=== PATIENT | female | born 1985 | race American Indian/Alaskan Native ===

== ENCOUNTER 2016-08-30 10:15 | Day surgery (SDC) | payer MEDICAID ==
[~2016-08-30 10:15] MED LIST: DIPRIVAN 10 MG/ML IV ONE; NACL BACTERIOSTATIC INFILTRATI ONE; ROBINUL ONE; SUBLIMAZE ONE; VANCOMYCIN/NS 1 GM/250 ML 1 GM/250 ML BAG IV NR; XYLOCAINE MPF 2% ONE; ZEMURON IV ONE
[2016-08-30] MEDS ORDERED: NACL 0.9% 1000 ML 1,000 ML IV SCH (11:14)
[2016-08-30] MEDS ORDERED: VERSED IV NR (11:14)
[2016-08-30] MEDS ORDERED: PEPCID PO NR (11:14)
--- NOTE | 2016-08-30 11:24 | Anesthesia Consultation ---
Anesthesia Consult and Med Hx Date of service: 08/30/16 - Airway Anesthetic Teeth Evaluation: Good ROM Head & Neck: Adequate Mental/Hyoid Distance: Adequate Mallampati Class: Class II Intubation Access Assessment: Probably Good - Pulmonary Exam CTA: Yes - Cardiac Exam Cardiac Exam: RRR - Pre-Operative Health Status ASA Pre-Surgery Classification: ASA2 Proposed Anesthetic Plan: General - Pulmonary Hx Smoking: Yes (current) Hx Asthma: Yes (last used inhaler approx 1 week ago) Hx Sleep Apnea: No - Cardiovascular System Hx Hypertension: No - Central Nervous System Hx Neuromuscular Disorder: No Hx Psychiatric Problems: Yes (anxiety) - Gastrointestinal Hx Gastroesophageal Reflux Disease: No - Endocrine Hx Renal Disease: No Hx Insulin Dependent Diabetes: No - Hematic Hx Anemia: Yes Hx Sickle Cell Disease: No - Other Systems Hx Alcohol Use: Yes (occas) Hx Substance Use: No Hx Cancer: No Hx Obesity: No
--- NOTE | 2016-08-30 11:24 | Anesthesia Day of Surgery ---
Anesthesia Day of Surgery - Day of Surgery Patient Examined: Yes Patient H&P Reviewed: Yes Patient is NPO: Yes
[2016-08-30] MEDS ORDERED: PROVENTIL IH ONE ×3 (11:30→15:40)
[2016-08-30] MEDS ORDERED: ZOFRAN IV PRN (11:30)
[2016-08-30] MEDS ORDERED: DILAUDID IV PRN (11:30)
[2016-08-30] MEDS ORDERED: MARCAINE 0.5% 0 ML INFILTRATI ONE (11:33)
[2016-08-30] MEDS ORDERED: MARCAINE-EPI/PF 0.5%-1:200,000 INFILTRATI ONE (11:34)
[2016-08-30 11:50] LABS: Basophils % (Auto) 0.3 % (0.0-1.8); Eosinophils % (Auto) 0.6 % (0.0-4.3); Hematocrit 35.9 % (30.3-42.9); Hemoglobin 12.1 gm/dl (10.1-14.3); Mean Corpuscular HGB Conc 34 % (30-34); Mean Corpuscular Hemoglobin 32 pg (28-32); Mean Corpuscular Volume 95 fl (79-97); Platelet Count 198 K/mm3 (140-440); Red Blood Count 3.79 M/mm3 (3.65-5.03); Red Cell Distribution Width 13.5 % (13.2-15.2); White Blood Count 11.7 K/mm3 (4.5-11.0)
[2016-08-30 12:01] LABS: Anion Gap 19 mmol/L; BUN/Creatinine Ratio 26.66; Blood Urea Nitrogen 16 mg/dL (7-17); Calcium 8.8 mg/dL (8.4-10.2); Carbon Dioxide 21 mmol/L (22-30); Chloride 102.2 mmol/L (98-107); Glucose 85 mg/dL (65-100); Potassium 4.4 mmol/L (3.6-5.0); Sodium 138 mmol/L (137-145)
[2016-08-30] MEDS ORDERED: DILAUDID ONE (12:44)
[2016-08-30] MEDS ORDERED: ZOFRAN ONE (12:44)
[2016-08-30] MEDS ORDERED: DECADRON ONE (12:44)
[2016-08-30] MEDS ORDERED: NACL 0.9% IR ONE (12:50)
[2016-08-30] MEDS ORDERED: MARCAINE 0.5% INFILTRATI ONE (12:50)
[2016-08-30] MEDS ORDERED: NEOSTIGMINE ONE (13:15)
[2016-08-30] MEDS ORDERED: ROBINUL ONE (13:15)
--- NOTE | 2016-08-30 13:22 | Discharge Summary ---
Short Stay Discharge Plan Activity: other (observe x 4 hrs then june d/c if stable. ice chips today. cl liq in am. advance to solid as gulshan ) Weight Bearing Status: Non-Weight Bearing (no lifting over 5 lbs x 1wk. keep dressings dry x 5 days) Diet: other Wound: keep clean and dry Follow up with: APRYL BIRD MD [Staff Physician] - 7 Days
--- NOTE | 2016-08-30 13:51 | Post Anesthesia Evaluation ---
- Post Anesthesia Evaluation Patient Participated: Yes Airway Patent: Yes Stable Respiratory Function: Yes Temp > 96.8F: Yes Pain Manageable: Yes Adequeate Hydration: Yes Anesthesia Complications: No Block Receding Appropriately: Not Applicable
[2016-08-30] MEDS ORDERED: NORCO 5/325 PO PRN (13:55)
[2016-08-30] MEDS ORDERED: NORCO 5/325 ONE (14:07)
[2016-08-30] MEDS ORDERED: VERSED IV ONE (14:36)
[2016-08-30] MEDS ORDERED: NACL 0.9% NEBU ONE (15:15)
[2016-08-30 16:23] VITALS: BP 98/59
--- NOTE | 2016-08-30 19:13 | Operative Report ---
PREOPERATIVE DIAGNOSIS: Abdominal pain, rule out adhesions. POSTOPERATIVE DIAGNOSIS: Extensive intra-abdominal omental as well as intestinal adhesions. PROCEDURE: 1. Diagnostic laparoscopy. 2. Lysis of extensive adhesions. 3. Re-tacking of corner of mesh from previous hernia repair. SURGEON: Del Tan MD. MAJOR CASE DETECTIVE: Dr. Hadley. ANESTHESIA: General. ESTIMATED BLOOD LOSS: Minimal. COMPLICATIONS: None. PROCEDURE IN DETAIL: The patient was taken to the operating room, prepped and draped in usual sterile fashion. Veress needle was inserted and CO2 insufflation begun. A 5 mm trocar was inserted and camera inserted. All other trocars were inserted under direct visualization. Inspection of the area revealed extensive omental and intestinal adhesions in the area of previous hernia repair. Harmonic scalpel was used to slowly dissect and lyse all adhesions until the entire bowel and omentum were freed from the previous repair site. The intestine was carefully inspected and no iatrogenic injuries noted. The mesh itself was noted to be slightly loosened after the dissection and lysis of adhesions in one of its corners. Three absorbable tacks were used to reinforce this area and place the mesh back on the fascia. The rest of the abdomen was essentially normal. The two 5 mm lateral trocars were removed under direct visualization. No bleeding or oozing noted. The final 5 mm port was used to expel the CO2 and the trocar removed. The skin at all port sites was closed with subcuticular 4-0 Vicryl. A 0.5% Marcaine was infiltrated over the port site for postoperative pain relief. The patient tolerated the procedure well and left the OR in stable condition. JOB# [id number] MARKOS/DAIJA
== END 2016-08-30 10:16 | disposition home or self-care (01) ==
LOC: OR 10:15
PROVIDERS: ATTEND Surgery
DX: N73.6 Female pelvic peritoneal adhesions (postinfective) (principal); J45.909 Unspecified asthma, uncomplicated; F41.9 Anxiety disorder, unspecified; F17.200 Nicotine dependence, unspecified, uncomplicated; D64.9 Anemia, unspecified; Z72.89 Other problems related to lifestyle; Z88.0 Allergy status to penicillin
CPT/HCPCS: 36415; 49329; 80048; 81025; 85025; 86850; 86900; 86901; J1100; J1170; J2250; J2405; J2704; J2710; J3010; J3370; J7030

== ENCOUNTER 2017-04-29 12:08 | Day surgery (SDC) | payer MEDICAID ==
[~2017-04-29 12:08] MED LIST changes: -DIPRIVAN 10 MG/ML IV ONE; +MARCAINE 0.5% INFILTRATI ONE; +NACL 0.9% IR ONE; -NACL BACTERIOSTATIC INFILTRATI ONE; -ROBINUL ONE; -SUBLIMAZE ONE; -VANCOMYCIN/NS 1 GM/250 ML 1 GM/250 ML BAG IV NR; +VANCOMYCIN/NS 1 GM/250 ML 1 GM/250 ML BAG IV SCH; -XYLOCAINE MPF 2% ONE; -ZEMURON IV ONE
[2017-04-29 13:07] LABS: Basophils % (Auto) 0.6 % (0.0-1.8); Eosinophils % (Auto) 0.5 % (0.0-4.3); Hematocrit 37.1 % (30.3-42.9); Hemoglobin 12.3 gm/dl (10.1-14.3); Lymphocytes # (Auto) 2.3 K/mm3 (1.2-5.4); Lymphocytes % (Auto) 27.4 % (13.4-35.0); Mean Corpuscular HGB Conc 33 % (30-34); Mean Corpuscular Hemoglobin 32 pg (28-32); Mean Corpuscular Volume 97 fl (79-97); Monocytes # (Auto) 0.6 K/mm3 (0.0-0.8); Monocytes % (Auto) 7.4 % (0.0-7.3); Platelet Count 237 K/mm3 (140-440); Red Cell Distribution Width 12.2 % (13.2-15.2)
[2017-04-29 13:34] LABS: BUN/Creatinine Ratio 17; Blood Urea Nitrogen 12 mg/dL (7-17); Calcium 8.8 mg/dL (8.4-10.2); Hemolysis Index 10
[2017-04-29] MEDS ORDERED: DILAUDID IV PRN ×2 (13:35→15:59)
[2017-04-29] MEDS ORDERED: PERCOCET 5/325 PO PRN (13:35)
[2017-04-29] MEDS ORDERED: PHENERGAN PO PRN (13:35)
--- NOTE | 2017-04-29 13:35 | Anesthesia Consultation ---
Anesthesia Consult and Med Hx Date of service: 04/29/17 - Airway Anesthetic Teeth Evaluation: Good ROM Head & Neck: Adequate Mental/Hyoid Distance: Adequate Mallampati Class: Class I Intubation Access Assessment: Good - Pulmonary Exam CTA: Yes - Cardiac Exam Cardiac Exam: RRR - Pre-Operative Health Status ASA Pre-Surgery Classification: ASA2 Proposed Anesthetic Plan: General - Pulmonary Hx Smoking: Yes (current) Hx Asthma: Yes Hx Sleep Apnea: No - Cardiovascular System Hx Hypertension: No - Central Nervous System Hx Neuromuscular Disorder: No Hx Psychiatric Problems: Yes - Gastrointestinal Hx Gastroesophageal Reflux Disease: No - Endocrine Hx Renal Disease: No Hx Insulin Dependent Diabetes: No - Hematic Hx Anemia: Yes Hx Sickle Cell Disease: No - Other Systems Hx Alcohol Use: Yes (occas) Hx Substance Use: No Hx Cancer: No Hx Obesity: No - Additional Comments Anesthesia Medical History Comments: Patient indicates a history of hypokalemia.
--- NOTE | 2017-04-29 13:35 | Anesthesia Day of Surgery ---
Anesthesia Day of Surgery - Day of Surgery Patient Examined: Yes Patient H&P Reviewed: Yes Patient is NPO: Yes
[2017-04-29] MEDS ORDERED: ZOFRAN IV PRN ×2 (14:00→15:59)
[2017-04-29] MEDS ORDERED: PEPCID IV NR (14:00)
[2017-04-29] MEDS ORDERED: LACTATED RINGERS 1,000 ML IV SCH (14:00)
[2017-04-29] MEDS ORDERED: VERSED IV NR (14:00)
[2017-04-29] MEDS ORDERED: VANCOMYCIN/NS 1 GM/250 ML 1 GM/250 ML BAG IV SCH (14:00)
[2017-04-29] MEDS ORDERED: MARCAINE 0.5% 30 ML INFILTRATI ONE (14:10)
[2017-04-29] MEDS ORDERED: ZEMURON IV ONE (14:14)
[2017-04-29] MEDS ORDERED: QUELICIN ONE (14:14)
[2017-04-29] MEDS ORDERED: DECADRON ONE (14:14)
[2017-04-29] MEDS ORDERED: ZOFRAN ONE (14:14)
[2017-04-29] MEDS ORDERED: DIPRIVAN 10 MG/ML IV ONE (14:15)
[2017-04-29] MEDS ORDERED: SUBLIMAZE ONE (14:15)
[2017-04-29] MEDS ORDERED: VERSED ONE (14:18)
[2017-04-29] MEDS ORDERED: XYLOCAINE 2% INFILTRATI ONE (14:22)
[2017-04-29] MEDS ORDERED: XYLOCAINE MPF 2% ONE ×2 (14:23→14:30)
[2017-04-29] MEDS ORDERED: ROBINUL ONE (15:08)
[2017-04-29] MEDS ORDERED: NEOSTIGMINE ONE (15:08)
--- NOTE | 2017-04-29 15:14 | Discharge Summary ---
Short Stay Discharge Plan Activity: other (observe x 4 hrs then may d/c if stable. ice chips today. cl liq in am then advance to solid diet as gulshan. keep dressings dry x 5 days. no lifting over 5 lbs x 2 wks) Weight Bearing Status: Partial Weight Bearing Diet: other Wound: keep clean and dry Additional Instructions: aleve I po q 6-8 hrs for breakthrough pain. surfak I po q am x 3 days Follow up with: TERRY MENDEZ MD [Primary Care Provider] - 7 Days
[2017-04-29] MEDS ORDERED: DILAUDID ONE (15:57)
--- NOTE | 2017-04-29 16:00 | Post Anesthesia Evaluation ---
- Post Anesthesia Evaluation Patient Participated: Yes Airway Patent: Yes Stable Respiratory Function: Yes Nausea/Vomiting: No Temp > 96.8F: Yes Pain Manageable: Yes Adequeate Hydration: Yes Anesthesia Complications: No
--- NOTE | 2017-04-29 17:17 | Operative Report ---
PREOPERATIVE DIAGNOSES: Rule out adhesions versus possible recurrent ventral hernia. POSTOPERATIVE DIAGNOSES: Extensive intra-abdominal adhesions around the old hernia repair site. No recurrent hernia noted. Also, extensive adhesions noted in the right subphrenic space between the diaphragm and the liver consistent with [id number]. These adhesions were also lysed. SURGEON: Del Tan MD ADMINISTRATIVE MEDICAL DIRECTOR: ____ ANESTHESIA: General. ESTIMATED BLOOD LOSS: Minimal. DRAINS: No drains. COMPLICATIONS: No complications. PROCEDURE IN DETAIL: The patient was taken to the operating room, prepped and draped in usual sterile fashion. Veress needle was inserted and CO2 insufflation begun. A 5 mm trocar was inserted and camera inserted. Inspection of the area revealed some thickened omental adhesions in the colon being pulled up to the area of the adhesions. A slow dissection was carried out with EndoShears as well as Harmonic scalpel until all adhesions were completely freed and the colon and the rest of the bowel were returned to its anatomical position in the abdominal cavity. The area of the bowel was carefully inspected and no iatrogenic injuries noted. No bleeding or oozing seen. The mesh was then inspected and a previous hernia site repair palpated and visualized. No evidence of any recurrent hernias noted. Further inspection revealed extensive right subphrenic adhesions between the diaphragm and liver. These were also dissected free. Pre and post-adhesiolysis pictures were taken of both the areas of dissection. Rest of the abdomen was essentially normal. The two lateral 5 mm ports were removed under direct visualization. No bleeding or oozing noted. The final 5 mm port was used to expel the CO2 and the trocar removed. The skin at all port sites was closed with subcuticular 4-0 Vicryl. A 0.5% Marcaine was infiltrated over the port site for postoperative pain relief. The patient tolerated the procedure well and left the OR in stable condition. JOB# [id number] MARKOS/DAIJA
[2017-04-29 19:26] VITALS: BP 107/65
== END 2017-04-29 12:09 | disposition home or self-care (01) ==
LOC: OR 12:08
PROVIDERS: ATTEND Surgery
DX: K66.0 Peritoneal adhesions (postprocedural) (postinfection) (principal); K21.9 Gastro-esophageal reflux disease without esophagitis; J45.909 Unspecified asthma, uncomplicated; F17.200 Nicotine dependence, unspecified, uncomplicated; Z88.0 Allergy status to penicillin; Z98.890 Other specified postprocedural states
CPT/HCPCS: 36415; 44180; 80048; 81025; 85025; A4217; J0330; J1100; J1170; J2250; J2405; J2704; J2710; J3010; J3370; J7120

== ENCOUNTER 2017-05-05 19:46 | Emergency (ER) | payer MEDICAID ==
[2017-05-05 20:42] LABS: Basophils % (Auto) 0.3 % (0.0-1.8); Eosinophils # (Auto) 0.1 K/mm3 (0.0-0.4); Eosinophils % (Auto) 0.6 % (0.0-4.3); Hematocrit 35.8 % (30.3-42.9); Hemoglobin 12.1 gm/dl (10.1-14.3); Lymphocytes # (Auto) 2.2 K/mm3 (1.2-5.4); Lymphocytes % (Auto) 23.9 % (13.4-35.0); Mean Corpuscular HGB Conc 34 % (30-34); Mean Corpuscular Hemoglobin 33 pg (28-32); Mean Corpuscular Volume 96 fl (79-97); Monocytes # (Auto) 0.5 K/mm3 (0.0-0.8); Monocytes % (Auto) 5.1 % (0.0-7.3); Platelet Count 221 K/mm3 (140-440); Red Blood Count 3.72 M/mm3 (3.65-5.03); Red Cell Distribution Width 12.8 % (13.2-15.2)
[2017-05-05 21:13] LABS: Alanine Aminotransferase 20 units/L (7-56); Albumin 3.9 g/dL (3.9-5); BUN/Creatinine Ratio 17; Blood Urea Nitrogen 10 mg/dL (7-17); Calcium 8.9 mg/dL (8.4-10.2); Hemolysis Index 2; Lipase 24 units/L (13-60)
[2017-05-05] MEDS ORDERED: MORPHINE IV ONE ×2 (23:00→23:08)
[2017-05-05] MEDS ORDERED: ZOFRAN IV ONE (23:08)
[2017-05-05] MEDS ORDERED: NACL 0.9% 1000 ML 1,000 ML IV ONE (23:09)
--- NOTE | 2017-05-05 23:13 | Emergency Department Report ---
ED Abdominal Pain HPI - General Chief Complaint: Abdominal Pain Stated Complaint: STOMACH PAIN Time Seen by Provider: 05/05/17 23:03 Source: patient Mode of arrival: Wheelchair Limitations: No Limitations - History of Present Illness Initial Comments: Patient is 31 years old female history of hernia repair [address] Oliva. Patient presented to the ER complaining of diffuse abdominal pain for the last 2 days. Patient describes her pain as stabbing and sharp 10 out of 10. Patient denied any diarrhea she stated that she is pain passing gas normally was no problem. Patient denied any nausea or vomiting. No fever. MD Complaint: abdominal pain -: days(s) Location: diffuse Radiation: none Migration to: no migration Severity: moderate Severity scale (0 -10): 5 Quality: stabbing Consistency: constant Associated Symptoms: denies other symptoms - Related Data Home Medications Medication Instructions Recorded Confirmed Last Taken Ferrous Sulfate [Feosol] 325 mg PO QDAY 08/27/16 04/29/17 04/27/17 09:00 Linaclotide [Linzess] 145 mcg PO PRN PRN 08/27/16 04/29/17 04/27/17 09:00 Valacyclovir HCl [valACYclovir] 500 mg PO DAILY 08/27/16 04/29/17 04/27/17 09:00 Gabapentin [Neurontin] 300 mg PO BID 04/24/17 04/29/17 04/27/17 09:00 QUEtiapine [SEROquel] 25 mg PO QHS 04/24/17 04/29/17 04/27/17 21:00 lamoTRIgine [LaMICtal] 100 mg PO QDAY 04/24/17 04/29/17 04/27/17 09:00 Previous Rx's Medication Instructions Recorded Last Taken Type ALBUTEROL Inhaler [ProAir HFA 1 - 2 puff IH QID PRN #1 inha 07/21/14 04/27/17 09 :00 Rx Inhaler] oxyCODONE /ACETAMINOPHEN [Percocet 1 - 2 tab PO Q4HR #20 tab 04/29/17 Unknown Rx 5/325] Ondansetron [Zofran Odt] 4 mg PO Q8HR PRN #14 tab.rapdis 05/06/17 Unknown Rx traMADol [Ultram 50 MG tab] 50 mg PO Q4HR PRN #14 tablet 05/06/17 Unknown Rx Allergies Allergy/AdvReac Type Severity Reaction Status Date / Time Penicillins Allergy Lose of Verified 04/24/17 10:19 control ED Review of Systems ROS: Stated complaint: STOMACH PAIN Other details as noted in HPI Comment: All other systems reviewed and negative Constitutional: denies: chills, fever ENT: denies: throat pain Respiratory: denies: cough, orthopnea, shortness of breath, SOB with exertion Cardiovascular: denies: chest pain, palpitations, dyspnea on exertion Gastrointestinal: abdominal pain. denies: nausea, vomiting, diarrhea, constipation, hematemesis, melena, hematochezia Musculoskeletal: denies: back pain Neurological: denies: headache, weakness, numbness, paresthesias ED Past Medical Hx - Past Medical History Hx Hypertension: No Hx GERD: Yes Hx Renal Disease: No Hx Sickle Cell Disease: No Hx Headaches / Migraines: Yes Hx Asthma: Yes Hx HIV: No - Surgical History Hx Breast Surgery: (LEFT BREAST BIOPSY) Additional Surgical History: hernia repair,scar tissue removal x2 - Social History Smoking Status: Current Some Day Smoker Substance Use Type: None - Medications Home Medications: Home Medications Medication Instructions Recorded Confirmed Last Taken Type ALBUTEROL Inhaler [ProAir HFA 1 - 2 puff IH QID PRN #1 inha 07/21/14 04/29/17 09:00 Rx Inhaler] Ferrous Sulfate [Feosol] 325 mg PO QDAY 08/27/16 04/29/17 04/27/17 09:00 History Linaclotide [Linzess] 145 mcg PO PRN PRN 08/27/16 04/29/17 04/27/17 09:00 History Valacyclovir HCl [valACYclovir] 500 mg PO DAILY 08/27/16 04/29/17 04/27/17 09: 00 History Gabapentin [Neurontin] 300 mg PO BID 04/24/17 04/29/17 04/27/17 09:00 History QUEtiapine [SEROquel] 25 mg PO QHS 04/24/17 04/29/17 04/27/17 21:00 History lamoTRIgine [LaMICtal] 100 mg PO QDAY 04/24/17 04/29/17 04/27/17 09:00 History oxyCODONE /ACETAMINOPHEN [Percocet 1 - 2 tab PO Q4HR #20 tab 04/29/17 Unknown Rx 5/325] Ondansetron [Zofran Odt] 4 mg PO Q8HR PRN #14 tab.rapdis 05/06/17 Unknown Rx traMADol [Ultram 50 MG tab] 50 mg PO Q4HR PRN #14 tablet 05/06/17 Unknown Rx ED Physical Exam - General Limitations: No Limitations General appearance: alert, in no apparent distress, anxious - Head Head exam: Present: atraumatic, normocephalic - Eye Eye exam: Present: normal appearance, PERRL - ENT ENT exam: Present: normal exam, normal orophraynx, mucous membranes moist - Neck Neck exam: Present: normal inspection, full ROM. Absent: tenderness, meningismus, lymphadenopathy, thyromegaly - Respiratory Respiratory exam: Present: normal lung sounds bilaterally. Absent: respiratory distress, wheezes, rales, rhonchi, stridor, chest wall tenderness, accessory muscle use, decreased breath sounds, prolonged expiratory - Cardiovascular Cardiovascular Exam: Present: regular rate, normal rhythm, normal heart sounds - GI/Abdominal GI/Abdominal exam: Present: soft, tenderness (diffuse), normal bowel sounds. Absent: distended, guarding, rebound, rigid, diminished bowel sounds, organomegaly, mass, bruit, pulsatile mass, hernia - Extremities Exam Extremities exam: Present: normal inspection, full ROM, normal capillary refill - Back Exam Back exam: Present: normal inspection, full ROM. Absent: tenderness, CVA tenderness (R), CVA tenderness (L), muscle spasm, paraspinal tenderness, vertebral tenderness - Neurological Exam Neurological exam: Present: alert, oriented X3, CN II-XII intact, normal gait - Skin Skin exam: Present: warm, intact, normal color. Absent: cyanosis, diaphoretic, erythema ED Course Vital Signs 05/05/17 05/05/17 05/05/17 20:04 20:10 23:34 Temperature 98.7 F 98.7 F 99.1 F Pulse Rate 92 H 76 83 Respiratory 18 18 16 Rate Blood Pressure 112/71 112/71 Blood Pressure 104/73 [Left] O2 Sat by Pulse 97 96 Oximetry 05/06/17 02:44 Temperature 99.1 F Pulse Rate 77 Respiratory 16 Rate Blood Pressure Blood Pressure 112/75 [Left] O2 Sat by Pulse 100 Oximetry - Reevaluation(s) Reevaluation #1: 05/06/17 02:53 Patient stated that she is feeling much better, her pain is completely resolved. ED Medical Decision Making - Lab Data Result diagrams: 05/05/17 20:18 05/05/17 20:18 - Radiology Data Radiology results: report reviewed Referring Physician: GRISELDA DANIELS Patient Name: LEONA LEMON Date of : 1985 Sex: Female Report Date: 2017-05-06 Report Status: Finalized Findings [facility] [address] [place] [address] Cat Scan Report Signed Patient: LEONA LEMON MR#: [id number] : 1985 Acct:[id number] Age/Sex: 31 / F ADM Date: 05/05/17 Loc: ED Attending Dr: Ordering Physician: GRISELDA DANIELS Date of Service: 05/05/17 Procedure(s): CT abdomen pelvis w con Accession Number(s): [id number] cc: GRISELDA DANIELS FINAL REPORT EXAM: CT ABDOMEN PELVIS W CON HISTORY: abdominal pain/ s/p hernia repair 6 days ago COMPARISON: None available. TECHNIQUE: Contiguous axial images were obtained. Additional sagittal and coronal reformatted images were obtained. Administration of IV contrast given per institution protocol. Images submitted for interpretation. 100 cc Omnipaque [id number]. FINDINGS: Mild linear atelectasis at the lung bases. No calcified gallstones or biliary dilatation. Homogeneous enhancement of the liver, spleen, pancreas and adrenal glands. Very mild diffuse fatty infiltration of the liver. No solid renal lesion or hydronephrosis. Aorta and IVC are normal in caliber. Urinary bladder, uterus and right ovary grossly unremarkable. Dominant follicle left ovary measuring 2.0 x 1.3 centimeters. Small amount of free fluid in the pelvis within physiologic limits. The appendix is partially gas-filled and normal in caliber. No focal inflammatory changes the bowel. Moderate stool within the majority the colon. Recent surgical changes of umbilical herniorrhaphy. No evidence of recurrent hernia. No postoperative fluid collection or free air. Lumbar vertebral body heights are preserved. Bony pelvis is grossly intact. IMPRESSION: Recent surgical changes of umbilical herniorrhaphy. No postoperative complications identified. No free air or abscess. Small amount of free fluid in the pelvis within physiologic limits. Dominant follicle left ovary measuring 2 centimeters. Moderate stool in the colon. Large and small bowel loops normal in caliber. The appendix is normal in caliber. Transcribed By: LMA Dictated By: VELMA ADAM MD Electronically Authenticated By: VELMA ADAM MD Signed Date/Time: 05/06/1725 DD/ TD/TT: 05/06/1725 - Medical Decision Making Discussed with Dr. Posada, he advised patient can be discharged home and follow up with him in his office. Critical care attestation.: If time is entered above; I have spent that time in minutes in the direct care of this critically ill patient, excluding procedure time. ED Disposition Clinical Impression: Abdominal pain, Status post unilateral hernia repair Disposition: - TO HOME OR SELFCARE Is pt being admited?: No Condition: Stable Instructions: Abdominal Pain (ED) Additional Instructions: Follow-up is Dr. Posada in the next 2-3 days. Prescriptions: Ondansetron [Zofran Odt] 4 mg PO Q8HR PRN #14 tab.rapdis PRN Reason: Nausea And Vomiting traMADol [Ultram 50 MG tab] 50 mg PO Q4HR PRN #14 tablet PRN Reason: Pain Referrals: TERRY MENDEZ MD [Primary Care Provider] - 3-5 Days
--- NOTE | 2017-05-06 00:30 | Cat Scan Report ---
FINAL REPORT EXAM: CT ABDOMEN PELVIS W CON HISTORY: abdominal pain/ s/p hernia repair 6 days ago COMPARISON: None available. TECHNIQUE: Contiguous axial images were obtained. Additional sagittal and coronal reformatted images were obtained. Administration of IV contrast given per institution protocol. Images submitted for interpretation. 100 cc Omnipaque [id number]. FINDINGS: Mild linear atelectasis at the lung bases. No calcified gallstones or biliary dilatation. Homogeneous enhancement of the liver, spleen, pancreas and adrenal glands. Very mild diffuse fatty infiltration of the liver. No solid renal lesion or hydronephrosis. Aorta and IVC are normal in caliber. Urinary bladder, uterus and right ovary grossly unremarkable. Dominant follicle left ovary measuring 2.0 x 1.3 centimeters. Small amount of free fluid in the pelvis within physiologic limits. The appendix is partially gas-filled and normal in caliber. No focal inflammatory changes the bowel. Moderate stool within the majority the colon. Recent surgical changes of umbilical herniorrhaphy. No evidence of recurrent hernia. No postoperative fluid collection or free air. Lumbar vertebral body heights are preserved. Bony pelvis is grossly intact. IMPRESSION: Recent surgical changes of umbilical herniorrhaphy. No postoperative complications identified. No free air or abscess. Small amount of free fluid in the pelvis within physiologic limits. Dominant follicle left ovary measuring 2 centimeters. Moderate stool in the colon. Large and small bowel loops normal in caliber. The appendix is normal in caliber.
[2017-05-06] MEDS ORDERED: TORADOL IV ONE (01:47)
[2017-05-06 01:53] LABS: Bilirubin,Urine NEG (Negative); Blood,Urine NEG (Negative); Color,Urine Straw (Yellow); Mucus,Urine FEW /HPF; Protein,Urine <15 mg/dL mg/dL (Negative); Urobilinogen,Urine < 2.0 mg/dL (<2.0)
[2017-05-06 02:45] VITALS: BP 112/75
== END 2017-05-06 03:11 | disposition home or self-care (01) ==
LOC: ED 19:46
DX: G89.18 Other acute postprocedural pain (principal); R10.84 Generalized abdominal pain; K21.9 Gastro-esophageal reflux disease without esophagitis; G43.909 Migraine, unspecified, not intractable, without status migrainosus; J45.909 Unspecified asthma, uncomplicated; F17.200 Nicotine dependence, unspecified, uncomplicated; Z98.890 Other specified postprocedural states; Z88.0 Allergy status to penicillin
CPT/HCPCS: 36415; 74177; 80053; 81001; 83690; 85025; 96361; 96374; 96375; 99284; J1885; J2270; J2405; J7030; Q9966